=== PATIENT | male | born 1955 | race Caucasian/White ===

== ENCOUNTER 2016-10-13 07:19 | Outpatient (CLI) | payer BC, OTHER ==
[2016-10-13 09:23] LABS: BASOPHILS # (AUTO) 0.1 K/uL (0.0-0.2); BASOPHILS % (AUTO) 1.3 % (0.0-2.0); EOSINOPHILS # (AUTO) 0.2 K/uL (0.0-0.7); EOSINOPHILS % (AUTO) 4.5 % (0.0-7.0); HEMATOCRIT 48.3 % (40.0-50.0); HEMOGLOBIN 16.4 g/dL (14.0-18.0); LYMPHOCYTES # (AUTO) 1.1 K/uL (0.8-4.8); LYMPHOCYTES % (AUTO) 20.8 % (20.5-51.5); MEAN CORPUSCULAR HEMOGLOBIN 29.8 uug (27.0-31.0); MEAN CORPUSCULAR HGB CONC 34 g/dL (32.0-37.0); MEAN CORPUSCULAR VOLUME 87.7 fL (82.0-92.0); MONOCYTES # (AUTO) 0.3 K/uL (0.1-1.30); MONOCYTES % (AUTO) 6.1 % (0.0-11.0); NEUTROPHILS # (AUTO) 3.8 K/uL (1.8-8.9); NEUTROPHILS % (AUTO) 67.3 % (38.5-71.5); PLATELET COUNT (AUTO) 271 K/uL (150-450); RED BLOOD CELL COUNT(AUTO) 5.51 MIL/uL (4.70-6.10); RED CELL DISTRIBUTION WIDTH 12.7 % (11.5-14.5); WHITE BLOOD COUNT (AUTO) 5.5 K/uL (4.0-11.2)
[2016-10-13 10:18] LABS: BILIRUBIN,TOTAL 0.7 mg/dL (0.2-1.0); CALCIUM 9.1 mg/dL (8.5-10.1); CREATININE 0.9 mg/dL (0.6-1.3); POTASSIUM 3.8 mmol/L (3.5-5.1); TOTAL PROTEIN, SERUM 7.6 g/dL (6.4-8.2)
[2016-10-13 10:59] LABS: *BILIRUBIN,URIN NEGATIVE (NEGATIVE); *BLOOD, URINE NEGATIVE (NEGATIVE); *CLARITY,URINE CLEAR (CLEAR); *COLOR,URINE YELLOW (YELLOW); *KETONES,URINE NEGATIVE (NEGATIVE); *PROTEIN,URINE NEGATIVE (NEGATIVE); *UROBILINOGEN,URINE 0.2 E.U./dl (NORMAL); FOLIC ACID 19.8 NG/ML (8.6-58.9); LEUKOCYTE ESTERASE ,URINE NEGATIVE (NEGATIVE); NITRITE, URINE NEGATIVE (NEGATIVE); PH,URINE 7.5 (5.0-8.0); UGLUCOSE NEGATIVE (NEGATIVE)
[2016-10-13 11:27] LABS: BACTERIA,URINE NONE SEEN /HPF (NONE SEEN); RBC,URINE 0-3 /HPF (0-3); SQUAMOUS EPITHELIAL CELL,UR FEW /HPF (NONE SEEN); URINE AMORPHOUS PHOSPHATES FEW /HPF; WBC,URINE 0-3 /HPF (0-3)
[2016-10-13 15:12] LABS: THYROID STIMULATING HORMONE 1.563 mIU/mL (0.358-3.740)
[2016-10-14 10:08] LABS: VIT D, 25-HYDROXY 46.7 ng/mL (30.0-100.0)
[2016-10-16 07:33] LABS: TEST, %FREE+WK BOUND 34.2 % (9.0-46.0); TEST, FREE+WK BOUND 99.9 ng/dL (40.0-250.0)
== END 2016-10-13 23:59 | disposition home or self-care (01) ==
LOC: LAB 07:19
PROVIDERS: ATTEND Legal Medicine
DX: Z00.01 Encounter for general adult medical examination with abnormal findings (principal); E78.00 Pure hypercholesterolemia, unspecified; N40.0 Benign prostatic hyperplasia without lower urinary tract symptoms; I10 Essential (primary) hypertension; E03.9 Hypothyroidism, unspecified; D64.9 Anemia, unspecified; J30.9 Allergic rhinitis, unspecified
CPT/HCPCS: 36415; 82306; 82746; 82785; 83550; 84153; 84402; 84403; 84443; 84550; 85025

== ENCOUNTER 2016-10-27 12:01 | Outpatient (CLI) | payer BC, OTHER | END 2016-10-27 23:59 | disposition home or self-care (01) | LOC: XRAY 12:01 | PROVIDERS: ATTEND Legal Medicine | DX: S52.612K Displaced fracture of left ulna styloid process, subsequent encounter for closed fracture with nonunion (principal); X58.XXXD Exposure to other specified factors, subsequent encounter | CPT/HCPCS: 73130 ==

== ENCOUNTER 2017-11-09 07:27 | Outpatient (CLI) | payer BC, OTHER ==
[2017-11-09 08:19] LABS: *BILIRUBIN,URIN NEGATIVE (NEGATIVE); *BLOOD, URINE NEGATIVE (NEGATIVE); *CLARITY,URINE CLEAR (CLEAR); *COLOR,URINE YELLOW (YELLOW); *KETONES,URINE NEGATIVE (NEGATIVE); *PROTEIN,URINE NEGATIVE (NEGATIVE); *UROBILINOGEN,URINE 0.2 E.U./dl (NORMAL); LEUKOCYTE ESTERASE ,URINE NEGATIVE (NEGATIVE); NITRITE, URINE NEGATIVE (NEGATIVE); PH,URINE 5.5 (5.0-8.0); UGLUCOSE NEGATIVE (NEGATIVE)
[2017-11-09 08:20] LABS: BASOPHILS % (AUTO) 0.6 % (0.0-2.0); EOSINOPHILS # (AUTO) 0.2 K/uL (0.0-0.7); EOSINOPHILS % (AUTO) 4.3 % (0.0-7.0); HEMATOCRIT 45.8 % (36.7-47.1); HEMOGLOBIN 15.5 g/dL (12.5-16.3); LYMPHOCYTES # (AUTO) 0.8 K/uL (20.0-40.0); LYMPHOCYTES % (AUTO) 16.9 % (20.5-51.5); MEAN CORPUSCULAR HEMOGLOBIN 30.1 uug (23.8-33.4); MEAN CORPUSCULAR HGB CONC 34 g/dL (32.5-36.3); MEAN CORPUSCULAR VOLUME 88.9 fL (73.0-96.2); MONOCYTES # (AUTO) 0.3 K/uL (2.0-10.0); MONOCYTES % (AUTO) 7.5 % (0.0-11.0); NEUTROPHILS # (AUTO) 3.3 K/uL (1.8-8.9); NEUTROPHILS % (AUTO) 70.7 % (38.5-71.5); PLATELET COUNT (AUTO) 281 K/uL (152-348); RED BLOOD CELL COUNT(AUTO) 5.15 MIL/uL (4.06-5.63); WHITE BLOOD COUNT (AUTO) 4.6 K/uL (3.6-10.2)
[2017-11-09 08:32] LABS: BACTERIA,URINE NONE SEEN /HPF (NONE SEEN); RBC,URINE 0-3 /HPF (0-3)
[2017-11-09 08:33] LABS: SQUAMOUS EPITHELIAL CELL,UR FEW /HPF (NONE SEEN)
[2017-11-09 09:01] LABS: BILIRUBIN,TOTAL 0.4 mg/dL (0.2-1.0); CREATININE 0.8 mg/dL (0.6-1.3); POTASSIUM 4.4 mmol/L (3.5-5.1); TOTAL PROTEIN, SERUM 7.3 g/dL (6.4-8.2); URIC ACID 6.1 mg/dL (3.5-7.2)
[2017-11-09 09:22] LABS: THYROID STIMULATING HORMONE 1.582 mIU/mL (0.358-3.740)
[2017-11-10 10:08] LABS: *TESTOSTERONE, SERUM 297 ng/dL (264-916)
[2017-11-10 11:09] LABS: VIT D, 25-HYDROXY 49.1 ng/mL (30.0-100.0)
[2017-11-12 07:06] LABS: TEST, %FREE+WK BOUND 27.2 % (9.0-46.0); TEST, FREE+WK BOUND 80.8 ng/dL (40.0-250.0)
== END 2017-11-09 23:59 | disposition home or self-care (01) ==
LOC: LAB 07:27
PROVIDERS: ATTEND Legal Medicine
DX: Z00.01 Encounter for general adult medical examination with abnormal findings (principal); R79.89 Other specified abnormal findings of blood chemistry
CPT/HCPCS: 36415; 82306; 82746; 83550; 84153; 84402; 84403; 84443; 84550; 85025

== ENCOUNTER 2018-10-04 08:39 | Inpatient (IN) | payer BC, OTHER ==
[~2018-10-04] VITALS: Ht 167.6 cm; Wt 67.1 kg
[2018-10-04] MEDS ORDERED: diphenhydrAMINE 50 MG/1 ML VIAL IV ONE (09:00)
[2018-10-04] MEDS ORDERED: FAMOTIDINE. 20 MG/2 ML VIAL IV ONE ×2 (09:00→09:11)
[2018-10-04] MEDS ORDERED: methylPREDNISolone SOD SUCC 125 MG/2 ML VIAL IV ONE (09:00)
[2018-10-04] MEDS ORDERED: methylPREDNISolone SOD SUCC 125 MG/2 ML VIAL ONE (09:11)
[2018-10-04] MEDS ORDERED: diphenhydrAMINE 50 MG/1 ML VIAL ONE (09:11)
[2018-10-04 09:20] LABS: BASOPHILS % (AUTO) 0.3 % (0.0-2.0); EOSINOPHILS # (AUTO) 0.3 K/uL (0.0-0.7); EOSINOPHILS % (AUTO) 4.2 % (0.0-7.0); HEMATOCRIT 44.9 % (36.7-47.1); HEMOGLOBIN 15.1 g/dL (12.5-16.3); LYMPHOCYTES # (AUTO) 0.8 K/uL (20.0-40.0); LYMPHOCYTES % (AUTO) 12.9 % (20.5-51.5); MEAN CORPUSCULAR HEMOGLOBIN 29.4 uug (23.8-33.4); MEAN CORPUSCULAR HGB CONC 34 g/dL (32.5-36.3); MEAN CORPUSCULAR VOLUME 87.7 fL (73.0-96.2); MONOCYTES # (AUTO) 0.2 K/uL (2.0-10.0); MONOCYTES % (AUTO) 3.1 % (0.0-11.0); NEUTROPHILS # (AUTO) 5.2 K/uL (1.8-8.9); NEUTROPHILS % (AUTO) 79.5 % (38.5-71.5); PLATELET COUNT (AUTO) 289 K/uL (152-348); RED BLOOD CELL COUNT(AUTO) 5.12 MIL/uL (4.06-5.63); WHITE BLOOD COUNT (AUTO) 6.5 K/uL (3.6-10.2)
[2018-10-04 09:26] LABS: CREATININE 0.9 mg/dL (0.6-1.3); POTASSIUM 3.8 mmol/L (3.5-5.1)
[2018-10-04 09:32] LABS: BILIRUBIN,DIRECT 0.1 mg/dL (0.0-0.2); BILIRUBIN,TOTAL 0.6 mg/dL (0.2-1.0); TOTAL PROTEIN, SERUM 7.2 g/dL (6.4-8.2)
[2018-10-04 11:14] VITALS: BP 138/67
[2018-10-04] MEDS ORDERED: IV NORMAL SALINE 500 ML IV ONE (13:30)
[2018-10-04] MEDS: methylPREDNISolone SOD SUCC 40 MG/ML VIAL IV SCH ×2 (14:09→22:06)
[2018-10-04 14:53] VITALS: BP 138/70
[2018-10-04] MEDS ORDERED: Z GUARD REMEDY PASTE 57 GM TUBE TOP PRN (19:30)
[2018-10-04] MEDS ORDERED: HYDROCODONE/APAP 5-325MG TABLET PO PRN (19:30)
[2018-10-04] MEDS ORDERED: ACETAMINOPHEN 325 MG TABLET PO PRN (19:30)
[2018-10-04] MEDS ORDERED: ZOLPIDEM 5 MG TABLET PO PRN (19:30)
[2018-10-04] MEDS ORDERED: ONDANSETRON 4 MG/2 ML VIAL IV PRN (19:30)
[2018-10-04] MEDS ORDERED: MAGNESIUM HYDROXIDE 30 ML LIQUID UDC PO PRN (19:30)
[2018-10-04 20:00] VITALS: BP 127/63
[2018-10-04 20:09] VITALS: BP 127/63
[2018-10-05] VITALS: BP 129/63
[2018-10-05 04:00] VITALS: BP 125/52
[2018-10-05] MEDS: methylPREDNISolone SOD SUCC 40 MG/ML VIAL IV SCH (06:20)
[2018-10-05 06:30] LABS: LYMPHOCYTES # (AUTO) 0.8 K/uL (20.0-40.0); MEAN CORPUSCULAR HEMOGLOBIN 29.2 uug (23.8-33.4); MONOCYTES # (AUTO) 0.4 K/uL (2.0-10.0)
[2018-10-05 06:48] LABS: BASOPHILS % (AUTO) 0.1 % (0.0-2.0); HEMATOCRIT 47.7 % (36.7-47.1); HEMOGLOBIN 15.9 g/dL (12.5-16.3); MEAN CORPUSCULAR HGB CONC 33 g/dL (32.5-36.3); MEAN CORPUSCULAR VOLUME 87.7 fL (73.0-96.2); MONOCYTES % (AUTO) 2.3 % (0.0-11.0); NEUTROPHILS # (AUTO) 14.7 K/uL (1.8-8.9); NEUTROPHILS % (AUTO) 92.6 % (38.5-71.5); PLATELET COUNT (AUTO) 332 K/uL (152-348); RED BLOOD CELL COUNT(AUTO) 5.44 MIL/uL (4.06-5.63); WHITE BLOOD COUNT (AUTO) 15.9 K/uL (3.6-10.2)
[2018-10-05 07:07] LABS: CREATININE 0.9 mg/dL (0.6-1.3); MAGNESIUM 2.3 mg/dL (1.8-2.4); PHOSPHOROUS 3.5 mg/dL (2.5-4.9); POTASSIUM 3.6 mmol/L (3.5-5.1)
[2018-10-05] MEDS ORDERED: FAMOTIDINE. 20 MG/2 ML VIAL IV SCH (09:00)
[2018-10-05] MEDS ORDERED: EPIN0.3P3 IJ (10:55)
[2018-10-05 11:32] VITALS: BP 126/55
== END 2018-10-05 11:45 | disposition home or self-care (01) | DRG 916 ==
LOC: ER 08:39 → TELE 10:47 → TELE3 10:57
PROVIDERS: ADMIT Nurse Practitioner Acute Care; ATTEND Nurse Practitioner Acute Care
DX: T78.3XXA Angioneurotic edema, initial encounter (principal); I10 Essential (primary) hypertension; E78.5 Hyperlipidemia, unspecified
CPT/HCPCS: 36415; 71045; 83735; 84100; 85025; 86900; 86901; 92523; 92526; 93005; A4663; G0378; J1200; J2920; J2930; J3490; J7030; J7040

== ENCOUNTER 2018-11-01 11:03 | Outpatient (CLI) | payer BC, OTHER ==
[~2018-11-01 11:03] MED LIST: EPIN0.3P3 IJ
== END 2018-11-01 23:59 | disposition home or self-care (01) ==
LOC: RAD 11:03
PROVIDERS: ATTEND Legal Medicine
DX: I34.0 Nonrheumatic mitral (valve) insufficiency (principal); I11.9 Hypertensive heart disease without heart failure; R42 Dizziness and giddiness
CPT/HCPCS: 93307; 93880

== ENCOUNTER 2018-11-02 07:16 | Outpatient (CLI) | payer BC, OTHER ==
[2018-11-02 08:02] LABS: BASOPHILS % (AUTO) 0.7 % (0.0-2.0); EOSINOPHILS # (AUTO) 0.3 K/uL (0.0-0.7); EOSINOPHILS % (AUTO) 5.4 % (0.0-7.0); HEMATOCRIT 45.7 % (36.7-47.1); HEMOGLOBIN 15.1 g/dL (12.5-16.3); LYMPHOCYTES % (AUTO) 18.5 % (20.5-51.5); MEAN CORPUSCULAR HEMOGLOBIN 29.5 uug (23.8-33.4); MEAN CORPUSCULAR HGB CONC 33 g/dL (32.5-36.3); MEAN CORPUSCULAR VOLUME 89.3 fL (73.0-96.2); MONOCYTES # (AUTO) 0.4 K/uL (2.0-10.0); MONOCYTES % (AUTO) 6.5 % (0.0-11.0); NEUTROPHILS # (AUTO) 3.8 K/uL (1.8-8.9); NEUTROPHILS % (AUTO) 68.9 % (38.5-71.5); PLATELET COUNT (AUTO) 292 K/uL (152-348); RED BLOOD CELL COUNT(AUTO) 5.11 MIL/uL (4.06-5.63); WHITE BLOOD COUNT (AUTO) 5.5 K/uL (3.6-10.2)
[2018-11-02 08:20] LABS: *BILIRUBIN,URIN NEGATIVE (NEGATIVE); *BLOOD, URINE NEGATIVE (NEGATIVE); *CLARITY,URINE CLEAR (CLEAR); *COLOR,URINE YELLOW (YELLOW); *KETONES,URINE NEGATIVE (NEGATIVE); *UROBILINOGEN,URINE 0.2 E.U./dl (NORMAL); LEUKOCYTE ESTERASE ,URINE NEGATIVE (NEGATIVE); NITRITE, URINE NEGATIVE (NEGATIVE); UGLUCOSE NEGATIVE (NEGATIVE)
[2018-11-02 08:21] LABS: THYROID STIMULATING HORMONE 1.909 mIU/mL (0.358-3.740)
[2018-11-02 08:43] LABS: BILIRUBIN,TOTAL 0.6 mg/dL (0.2-1.0); CREATININE 0.9 mg/dL (0.6-1.3); TOTAL PROTEIN, SERUM 7.4 g/dL (6.4-8.2)
[2018-11-02 09:02] LABS: WBC,URINE 0-3 /HPF (0-3)
[2018-11-03 08:05] LABS: *TESTOSTERONE, SERUM 256 ng/dL (264-916)
== END 2018-11-02 23:59 | disposition home or self-care (01) ==
LOC: LAB 07:16
PROVIDERS: ATTEND Legal Medicine
DX: Z00.00 Encounter for general adult medical examination without abnormal findings (principal); E11.9 Type 2 diabetes mellitus without complications; I10 Essential (primary) hypertension; E78.5 Hyperlipidemia, unspecified; D64.9 Anemia, unspecified
CPT/HCPCS: 36415; 83550; 84153; 84402; 84403; 84443; 84550; 85025

== ENCOUNTER 2018-12-14 08:31 | Outpatient (CLI) | payer BC, OTHER ==
[2018-12-14 10:00] LABS: BASOPHILS % (AUTO) 0.7 % (0.0-2.0); EOSINOPHILS # (AUTO) 0.3 K/uL (0.0-0.7); EOSINOPHILS % (AUTO) 4.8 % (0.0-7.0); HEMATOCRIT 45.8 % (36.7-47.1); HEMOGLOBIN 15.5 g/dL (12.5-16.3); LYMPHOCYTES # (AUTO) 1.1 K/uL (20.0-40.0); LYMPHOCYTES % (AUTO) 19.3 % (20.5-51.5); MEAN CORPUSCULAR HEMOGLOBIN 29.8 uug (23.8-33.4); MEAN CORPUSCULAR HGB CONC 34 g/dL (32.5-36.3); MEAN CORPUSCULAR VOLUME 88.2 fL (73.0-96.2); MONOCYTES # (AUTO) 0.4 K/uL (2.0-10.0); MONOCYTES % (AUTO) 6.3 % (0.0-11.0); NEUTROPHILS # (AUTO) 3.9 K/uL (1.8-8.9); NEUTROPHILS % (AUTO) 68.9 % (38.5-71.5); PLATELET COUNT (AUTO) 296 K/uL (152-348); RED BLOOD CELL COUNT(AUTO) 5.19 MIL/uL (4.06-5.63); WHITE BLOOD COUNT (AUTO) 5.7 K/uL (3.6-10.2)
[2018-12-14 10:01] LABS: *BILIRUBIN,URIN NEGATIVE (NEGATIVE); *BLOOD, URINE NEGATIVE (NEGATIVE); *CLARITY,URINE CLEAR (CLEAR); *COLOR,URINE YELLOW (YELLOW); *KETONES,URINE NEGATIVE (NEGATIVE); *UROBILINOGEN,URINE 0.2 E.U./dl (NORMAL); LEUKOCYTE ESTERASE ,URINE NEGATIVE (NEGATIVE); NITRITE, URINE NEGATIVE (NEGATIVE); UGLUCOSE NEGATIVE (NEGATIVE)
[2018-12-14 10:19] LABS: BACTERIA,URINE NONE SEEN /HPF (NONE SEEN); RBC,URINE 0-3 /HPF (0-3)
[2018-12-14 10:20] LABS: CALCIUM OXALATE CRYSTALS,UR RARE /HPF (NONE SEEN); SQUAMOUS EPITHELIAL CELL,UR FEW /HPF (NONE SEEN)
[2018-12-14 10:21] LABS: MUCUS,URINE FEW /LPF (0-FEW)
== END 2018-12-14 23:59 | disposition home or self-care (01) ==
LOC: LAB 08:31
PROVIDERS: ATTEND Legal Medicine
DX: N50.89 Other specified disorders of the male genital organs (principal); N41.9 Inflammatory disease of prostate, unspecified; N50.819 Testicular pain, unspecified; N40.0 Benign prostatic hyperplasia without lower urinary tract symptoms
CPT/HCPCS: 36415; 76870; 84153; 85025; 87086

== ENCOUNTER 2018-12-19 06:20 | Outpatient (CLI) | payer BC, OTHER ==
[2018-12-19 07:55] LABS: CREATININE 0.8 mg/dL (0.6-1.3); POTASSIUM 3.9 mmol/L (3.5-5.1)
== END 2018-12-19 23:59 | disposition home or self-care (01) ==
LOC: LAB 06:20
PROVIDERS: ATTEND Registered Nurse
DX: Z00.00 Encounter for general adult medical examination without abnormal findings (principal)
CPT/HCPCS: 36415

== ENCOUNTER 2019-09-14 07:05 | Outpatient (CLI) | payer BC, OTHER ==
[2019-09-14 08:59] LABS: BASOPHILS % (AUTO) 0.4 % (0.0-2.0); EOSINOPHILS # (AUTO) 0.1 K/uL (0.0-0.7); EOSINOPHILS % (AUTO) 1.2 % (0.0-7.0); HEMOGLOBIN 14.8 g/dL (12.5-16.3); LYMPHOCYTES # (AUTO) 1.2 K/uL (20.0-40.0); LYMPHOCYTES % (AUTO) 15.3 % (20.5-51.5); MEAN CORPUSCULAR HEMOGLOBIN 29.7 uug (23.8-33.4); MEAN CORPUSCULAR HGB CONC 34 g/dL (32.5-36.3); MEAN CORPUSCULAR VOLUME 88.5 fL (73.0-96.2); MONOCYTES # (AUTO) 0.5 K/uL (2.0-10.0); MONOCYTES % (AUTO) 5.9 % (0.0-11.0); NEUTROPHILS # (AUTO) 5.9 K/uL (1.8-8.9); NEUTROPHILS % (AUTO) 77.2 % (38.5-71.5); PLATELET COUNT (AUTO) 331 K/uL (152-348); RED BLOOD CELL COUNT(AUTO) 4.98 MIL/uL (4.06-5.63); WHITE BLOOD COUNT (AUTO) 7.7 K/uL (3.6-10.2)
[2019-09-14 09:19] LABS: THYROID STIMULATING HORMONE 2.408 mIU/mL (0.358-3.740)
[2019-09-14 09:29] LABS: *BILIRUBIN,URIN NEGATIVE (NEGATIVE); *BLOOD, URINE NEGATIVE (NEGATIVE); *CLARITY,URINE CLEAR (CLEAR); *COLOR,URINE YELLOW (YELLOW); *KETONES,URINE NEGATIVE (NEGATIVE); *UROBILINOGEN,URINE 0.2 E.U./dl (NORMAL); LEUKOCYTE ESTERASE ,URINE NEGATIVE (NEGATIVE); NITRITE, URINE NEGATIVE (NEGATIVE); PH,URINE 5.5 (5.0-8.0); UGLUCOSE NEGATIVE (NEGATIVE)
[2019-09-14 09:44] LABS: CARBON DIOXIDE 30 mmol/L (21-32); CHLORIDE 104 mmol/L (98-107); CREATININE 0.6 mg/dL (0.6-1.3); GLUCOSE 103 mg/dL (74-106); POTASSIUM 3.5 mmol/L (3.5-5.1); UREA NITROGEN, BLOOD 11 mg/dL (7-18)
[2019-09-14 09:45] LABS: ALANINE AMINOTRANSFERASE 31 U/L (16-63); ALKALINE PHOSPHATASE 89 U/L (50-136); ASPARTATE AMINOTRANSFERASE 22 U/L (15-37); BILIRUBIN,TOTAL 0.4 mg/dL (0.2-1.0); TOTAL PROTEIN, SERUM 7.4 g/dL (6.4-8.2)
[2019-09-14 10:04] LABS: IRON, SERUM 71 ug/dL (50-175)
[2019-09-14 10:37] LABS: CHOLESTEROL 207 mg/dL (<200); HDL CHOLESTEROL 69 mg/dL (40-60); TRIGLYCERIDES 112 MG/DL (30-150); URIC ACID 6.3 mg/dL (3.5-7.2)
[2019-09-15 08:08] LABS: *TESTOSTERONE, SERUM 222 ng/dL (264-916)
[2019-09-18 14:06] LABS: TEST, %FREE+WK BOUND 32.3 % (9.0-46.0); TEST, FREE+WK BOUND 71.7 ng/dL (40.0-250.0)
== END 2019-09-14 23:59 | disposition home or self-care (01) ==
LOC: XRAY 07:05
PROVIDERS: ATTEND Legal Medicine
DX: Z00.00 Encounter for general adult medical examination without abnormal findings (principal); I12.9 Hypertensive chronic kidney disease with stage 1 through stage 4 chronic kidney disease, or unspecified chronic kidney disease; E11.22 Type 2 diabetes mellitus with diabetic chronic kidney disease; N18.9 Chronic kidney disease, unspecified; E03.9 Hypothyroidism, unspecified; D64.9 Anemia, unspecified; E55.9 Vitamin D deficiency, unspecified; M77.31 Calcaneal spur, right foot
CPT/HCPCS: 73630; 82306; 83550; 84153; 84402; 84403; 84443; 84550; 85025; 85651

== ENCOUNTER 2021-06-12 07:13 | Outpatient (CLI) | payer BC, OTHER ==
[2021-06-12 07:46] LABS: HEMATOCRIT 45.5 % (36.7-47.1); MEAN CORPUSCULAR HEMOGLOBIN 30.2 uug (23.8-33.4); MEAN CORPUSCULAR VOLUME 89.4 fL (73.0-96.2); PLATELET COUNT (AUTO) 277 K/uL (152-348)
[2021-06-12 08:07] LABS: THYROID STIMULATING HORMONE 1.425 mIU/mL (0.358-3.740)
[2021-06-12 08:24] LABS: BILIRUBIN,TOTAL 0.4 mg/dL (0.2-1.0); CREATININE 0.8 mg/dL (0.6-1.3); POTASSIUM 3.7 mmol/L (3.5-5.1); TOTAL PROTEIN, SERUM 7.1 g/dL (6.4-8.2); URIC ACID 5.8 mg/dL (3.5-7.2)
[2021-06-12 08:34] LABS: *BILIRUBIN,URIN NEGATIVE (NEGATIVE); *BLOOD, URINE NEGATIVE (NEGATIVE); *CLARITY,URINE CLEAR (CLEAR); *COLOR,URINE YELLOW (YELLOW); *KETONES,URINE NEGATIVE (NEGATIVE); *UROBILINOGEN,URINE 0.2 E.U./dl (NORMAL); LEUKOCYTE ESTERASE ,URINE NEGATIVE (NEGATIVE); NITRITE, URINE NEGATIVE (NEGATIVE); PH,URINE 5.5 (5.0-8.0); UGLUCOSE NEGATIVE (NEGATIVE)
[2021-06-13 09:06] LABS: *TESTOSTERONE, SERUM 278 ng/dL (264-916)
== END 2021-06-12 23:59 | disposition home or self-care (01) ==
LOC: LAB 07:13
PROVIDERS: ATTEND Legal Medicine
DX: E11.22 Type 2 diabetes mellitus with diabetic chronic kidney disease (principal); N18.9 Chronic kidney disease, unspecified; E78.5 Hyperlipidemia, unspecified; E03.9 Hypothyroidism, unspecified; D64.9 Anemia, unspecified; Z00.00 Encounter for general adult medical examination without abnormal findings
CPT/HCPCS: 36415; 82306; 82746; 83550; 84153; 84402; 84403; 84443; 84550; 85025

== ENCOUNTER 2021-06-17 11:17 | Outpatient (CLI) | payer BC, OTHER | END 2021-06-17 23:59 | disposition home or self-care (01) | LOC: XRAY 11:17 | PROVIDERS: ATTEND Legal Medicine | DX: R05.9 Cough, unspecified (principal); M47.814 Spondylosis without myelopathy or radiculopathy, thoracic region | CPT/HCPCS: 71046 ==

== ENCOUNTER 2021-06-19 08:56 | Outpatient (CLI) | payer BC, OTHER | END 2021-06-19 23:59 | disposition home or self-care (01) | LOC: LAB 08:56 | PROVIDERS: ATTEND Legal Medicine | DX: E78.5 Hyperlipidemia, unspecified (principal) | CPT/HCPCS: 36415 ==